=== PATIENT | female | born 1965 | race Caucasian/White ===

== ENCOUNTER 2022-06-12 15:08 | Emergency (ER) | payer OTHER, SELFPAY ==
--- NOTE | ~2022-06-12 | XR_ITS ---
XR wrist RT min 3V DATE: 06/12/2022 15:41 INDICATION: Renal partially. Deformity and tenderness of wrist TECHNIQUE: 3 views of right breast COMPARISON: None FINDINGS: There is a minimally displaced comminuted intra-articular fracture of the distal radius wit h dorsal inclination of the distal radial articular surface. Probable nondisplaced fracture of the ulnar styloid process. Normal alignment at the radiocarpal joint. IMPRESSION: Comminuted intra-articular fracture distal radius with dorsal inclination of distal radia l articular surface Probable virtually nondisplaced ulnar styloid process fracture Reviewed, dictated and finalized at location A. IMPRESSION: Comminuted intra-articular fracture distal radius with dorsal incli nation of distal radial articular surface Probable virtually nondisplaced ulnar styloid process fracture
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
[2022-06-12 15:31] VITALS: BP 158/74; PULSE 86; RESP 18; TEMP 36.7; O2SAT 96
[2022-06-12] MEDS: HYDROcodone/acetaminophen (*CRX) 7.5-325 MG TABLET 1 TAB PO (16:31)
== END 2022-06-12 18:30 | disposition home or self-care (01) ==
PROVIDERS: Emergency Provider Emergency Medicine; PCP Nurse Practitioner Family
DX: S52.571A Other intraarticular fracture of lower end of right radius, initial encounter for closed fracture (principal); V49.40XA Driver injured in collision with unspecified motor vehicles in traffic accident, initial encounter
CPT/HCPCS: 29125; 73090; 73110; 99284; A4565; A9270

== ENCOUNTER 2022-06-16 01:00 | Day surgery (SDC) | payer OTHER, SELFPAY ==
[2022-06-14 14:08] VITALS: BMI 38.7
--- NOTE | 2022-06-14 14:16 | PC.NURSE ---
Report to the Outpatient Waiting Room, entrance under the green pavilion located off [facility], at time 0830 on date 06/16/22. OR Time: 1030. Time changes happen often and if your time is changed the preop area will call you the afternoon before. - You and your visitor will be asked to self-screen and do not enter if you have any COVID symptoms. - Only one visitor and NO children visitors are allowed at this time. - The patient visitor is requested to leave or wait in car when not with patient due to restrictions. - A mask is required within the hospital. Patients may have clear liquids (water, carbonated beverages, clear teas, apple juice) until 3 hours prior to surgery with a maximum of 20 ounces. - No food from midnight until time of surgery Take the following medications with a SIP of water the morning of surgery: PAIN PILL IF NEEDED Medications to discontinue per physician: N/A Date to take last dose: N/A Please no make-up, nail kinyarwanda, hairspray, perfume, deodorant, or body powder the day of surgery. No jewelry (including any body piercings) or valuables the day of surgery, leave them at home. Please take a shower or bath the night before, or the morning of, surgery with an antibacterial soap. Wear comfortable, loose fitting clothing. - Jewelry must be removed prior to entering the operating room. Rings and piercings that are not removed may be cut off. - The hospital will not accept responsibility for valuables. - Please leave all valuables, including medications, at home the day of surgery. If you are going home after surgery, a licensed transport truck driver must drive you home. - NO public transportation without another adult. - We recommend that an adult stay with you for 24 hours following discharge. - We also recommend that you do not drive, make important decision, drink alcoholic beverages, or take any drugs that were not prescribed by your health care provider for at least 24 hours after your discharge time. Follow any additional instructions given to you from your surgeon. If you or anyone in your household have experienced Covid symptoms in the past week, please notify your surgeon or the nurse liaison at the phone number below for possible testing. Telephone instructions given to PT - ISHAAN SHELTON and asked if any additional questions and then verbalized understanding. Patient advised to call surgeon office or pre surgery nurse liaison [phone] if any additional questions.
--- NOTE | 2022-06-15 16:00 | WPDANESEPPF ---
Anes - Initial Pre Proc Eval Procedure: Operation Date: 06/16/22 10:30 Proposed Procedures p Open Reduction Internal Fixation of Right Wrist - Michoacano Metz MD Date/Time: 06/15/22 16:00 Surgeon: Michoacano Metz MD Pre Op Diagnosis: right distal radius fracture Patient Data Age: 56 Gender: F Height: 1.68 m Weight: 108.86 kg Allergies Allergy/AdvReac Type Severity Reaction Status Date / Time No Known Allergies Allergy Verified 06/16/22 09:10 Home Medications Medication Instructions Recorded Confirmed Type hydrocodone 5 mg-acetaminophen 325 1 tablet PO Q8H PRN pain #7 tabs 06/12/22 06/16/22 Rx mg tablet Patient hx anesthesia problems: none Family hx anesthesia problems: none Results Review: All pre-operative results and documents have been reviewed as part of the pre-operative evaluation. [facility] Past Medical History Medical History Arthritis Distal radius fracture, right Obesity PONV (postoperative nausea and vomiting) Smoker Social History Social History (Updated 06/14/22 @ 12:17 by Janice Dsouza MA) Smoking packs per day: 1 Smoking cigarettes per day: 20.0 Years smoked: 30 Smoking pack-years: 30.00 Smoking status: Current every day smoker Tobacco type: cigarettes Alcohol intake: former Substance use: never Substance use type: does not use Living arrangements: with family Gender identity (if verbalized by the patient): Female Spiritual care concerns: No Anes - Eval Final PreProcedure Day of Procedure 06/15/22 16:00 Patient weight: obese Heart: regular rate and rhythm Lungs: clear to auscultation and normal air movement Airway: Mallampati scale class II Neurological: alert and oriented Last oral intake: >/= 8 hours ASA classification: III Emergent: no Anesthetic plan: proceed Anesthesia type and monitoring: general LMA Results Review: All pre-operative results and documents have been reviewed as part of the pre-operative evaluation. Informed Consent: The patient's anesthetic plan and its attendant risks and benefits were discussed with the patient/family/POA. Questions were solicited and answers provided to the satisfaction of the patient/family/POA.
--- NOTE | 2022-06-15 16:02 | WPDANESPNB ---
Anes - Peripheral Nerve Block Date/Time: 06/15/22 16:02 I have discussed with the patient/family/POA the placement of a peripheral nerve block for post-operative pain management, including associated risks, benefits, complications, and side effects. Alternative methods of post-operative analgesia were detailed. Questions were solicited and answers provided to the satisfaction of the patient/family/POA. Time-Out: A pre-procedural Time-Out was completed immediately before starting the procedure and confirmed: Patient Identification, Site, Procedure, Patient Position and the Availability of Requisite Equipment. Clinical Indications: Acute post-operative pain management requested by the operative surgeon. Nerve Block Insertion Note Anes-nerve block: supraclavicular Patient position: supine Skin prep: chlorhexidine Needle: 22 gauge, stimulating, insulated echogenic needle. Needle length: 80 mm Technique: ultrasound (in plane) Injectate: bupivacaine 0.5% with epi 5 mcg/ml (20cc) Observations: tolerated well Complications: none Procedure start time:: 1110 Procedure end time:: 1115
[2022-06-16] VITALS (12 sets, daily range): BP systolic 111–153; BP diastolic 63–79; PULSE 65–76; RESP 12–20; TEMP 36.7–36.8; O2SAT 94–97
--- NOTE | ~2022-06-16 | XR_ITS ---
EXAMINATION: XR surgery orthopedic DATE: 06/16/2022 13:31 INDICATION: Open reduction internal fixation of a right wrist fracture. TECHNIQUE: 4 fluoroscopic images of the right wrist were obtained during procedure performed by Dr. Sandra puga. Radiologist was not present for the imaging or procedure. The amount of fluoroscopy time used during this procedure was 10.3 minutes. COMPARISON: None. FINDINGS: Interval open reduction internal volar plate and screw fixation of the intra-articular frac ture of the distal right radius with decreased now 60 degrees dorsal tilt of the distal articular farhat face. No significant fracture gap or incongruity evident at the intra-articular fracture plane which involves the radial side of the lunate fossa. Essentially indiscernible nondisplaced fracture at the base of the ulnar styloid process is better appreciated on the prior radiographs. Joint spaces are no rmal. Expected soft tissue gas the operative bed. IMPRESSION: 1. Improved alignment of a comminuted intra-articular fracture of the distal right radius post open r eduction internal fixation. 2. Unchanged nondisplaced fracture across the base of the ulnar styloid process. Reviewed, dictated and finalized at location A. IMPRESSION: 1. Improved alignment of a comminuted intra-articular fracture of the distal ri ght radius post open reduction internal fixation. 2. Unchanged nondisplaced fracture across the base of the ulnar styloid process .
--- NOTE | 2022-06-16 07:14 | WPDHPUPDATE1 ---
History and Physical Update Update Date/Time: 06/16/22 07:14 History and Physical has been reviewed, including an updated exam of the patient. There are NO changes in the patient's condition. Risks, benefits, and alternatives have been discussed and questions answered. Patient agrees to proceed with procedure.
[2022-06-16] MEDS: LACTATED RINGERS 1,000 ML 30 ML IV CONT ×2 (08:55→13:51)
[2022-06-16] MEDS: CELECOXIB 200 MG CAPSULE PO (08:55)
[2022-06-16] MEDS: ACETAMINOPHEN 500 MG TABLET PO (08:55)
--- NOTE | 2022-06-16 09:08 | ECG_ITS ---
Measurements Intervals [place] Rate: 60 P: 30 [place]: 160 QRS: -1 QRSD: 97 T: -22 QT: 408 QTc: 408 Interpretive Statements SINUS RHYTHM ST-T WAVE ABNORMALITY IN ANT/INF LEADS- CONSIDER ISCHEMIA ABNORMAL ECG NO PREVIOUS ECG AVAILABLE FOR COMPARISON Electronically Signed On 06-16-2022 11:26:58 CDT by Wiliam Segura D.O.
[2022-06-16] MEDS: ceFAZolin 2 GM/D5W 50 ML 2 GM/50 ML BAG IVPB (11:16)
--- NOTE | 2022-06-16 14:01 | W.PM.PROC2 ---
Procedure Note - Detailed Date of Procedure 06/16/22 Pre-op Diagnosis right distal radius fracture Post-op Diagnosis Same Procedure Performed ORIF RIGHT DISTAL RADIUS FRACTURE Surgeon Michoacano Metz MD Anesthesia General Description of Procedure THE RIGHT UPPER EXTREMITY WAS PREPPED AND DRAPED IN THE STERILE FASHION. A STANDARD HENRYS APPROACH WAS USED TO THE VOLAR WRIST. DISSECTION THROUGH THE SKIN AND SUBCUTANEOUS TISSUE WAS PREFORMED. THE FCR TENDON WAS IDENTIFIED. THE RADIAL ARTERY WAS IDENTIFIED AND RETRACTED. THE THE FLEXOR POLLICIS AND THE COMMON FLEXOR TENDONS WERE IDENTIFIED AND RETRACTED. THE PRONATOR QUADRATUS WAS IDENTIFIED AND INCISED EXPOSING THE FRACTURE. IT WAS HIGHLY COMMINUTED. A TRIAL REDUCTION WAS PREFORMED AND FIXED WITH A K WIRE. NEXT A BIOMET DISTAL RADIUS LOCKING PLATE WAS PLACED BRIDGING THE FRACTURE FRAGMENTS. SCREWS WERE PLACED DISTALLY AND PROXIMALLY. THE DISTAL SCREWS WERE IMAGED AND FOUND TO BE EXTRA ARTICULAR. C ARM IMAGES WERE PREFORMED AND HARDWARE AND FRACTURE FRAGMENTS WERE IN GOOD POSITION. THE TOURNIQUET WAS DEFLATED AND THE BLEEDERS WERE CAUTERIZED. THE FASCIA AND SUB CUTANEOUS LAYERS WERE APPROXIMATED WITH 3-0 VICRYL. THE SKIN WAS APPROXIMATED WITH CRISTINA. STERILE DRESSING AND SPLINT WAS APPLIED. PATIENT WAS EXTUBATED. Estimated Blood Loss -5.0 Complications No immediate complications Condition Stable Disposition PACU
[2022-06-16] MEDS: oxyCODONE HCL (*CRX) 5 MG TAB IR PO (15:36)
== END 2022-06-16 16:40 | disposition home or self-care (01) ==
PROVIDERS: PCP Nurse Practitioner Family; Visit Provider Orthopaedic Surgery
PROC: (CPT 25575; principal; 2022-06-16 10:30)
DX: S52.571A Other intraarticular fracture of lower end of right radius, initial encounter for closed fracture (principal); S52.614A Nondisplaced fracture of right ulna styloid process, initial encounter for closed fracture; G89.18 Other acute postprocedural pain; V49.50XA Passenger injured in collision with unspecified motor vehicles in traffic accident, initial encounter; F17.210 Nicotine dependence, cigarettes, uncomplicated; E66.9 Obesity, unspecified; Z68.37 Body mass index [BMI] 37.0-37.9, adult
CPT/HCPCS: 25608; 64415; 93005; 99199; A4565; A9270; C1713; J0690; J1100; J1170; J2250; J2405; J2704; J3010; J7120

== ENCOUNTER → 2023-08-26 14:29 | Outpatient (CLI) | payer OTHER, SELFPAY ==
--- NOTE | ~2023-08-26 | CT_ITS ---
EXAMINATION:CT lung screening DATE: 08/26/2023 14:50 INDICATION: Tobacco dependence. Smoker who quit this year with 35 pack year history. TECHNIQUE: Computed tomography (CT) of the chest was performed without intravenous contrast. Automate d exposure control and iterative reconstruction technique were employed. The dose-length product (DLP ) was 295.84 mGy-cm. COMPARISON: None. FINDINGS: The lungs demonstrate minimal atelectasis. No pleural effusion. The heart size is normal. T here are coronary artery calcifications. No pericardial effusion. There is diffuse hepatic steatosis. There is mild thoracic spondylosis. IMPRESSION: 1. Lung-RADS category 1: Negative. Continue annual screening with noncontrast low-dose chest CT in 12 months. Reviewed, dictated and finalized at location E. [facility]MINISTRATOR IMPRESSION: 1. Lung-RADS category 1: Negative. Continue annual screening with noncontrast l ow-dose chest CT in 12 months.
== END ==
PROVIDERS: PCP Nurse Practitioner Family; Visit Provider Nurse Practitioner Family
DX: Z12.2 Encounter for screening for malignant neoplasm of respiratory organs (principal); Z87.891 Personal history of nicotine dependence
CPT/HCPCS: 71271

== ENCOUNTER 2024-11-09 15:20 | Outpatient (CLI) | payer OTHER, SELFPAY ==
--- NOTE | ~2024-11-09 | CT_ITS ---
EXAMINATION: CT lung screening DATE: 11/09/2024 15:35 INDICATION: nicotine dependence in remission TECHNIQUE: Computed tomography (CT) of the chest was performed without intravenous contrast. Addition al 3D reconstructions utilizing coronal maximum intensity projection (MIP) were performed. Automated exposure control and iterative reconstruction technique were employed. The dose-length product was 14 7.39 mGy-cm. COMPARISON: 09/05/2023 FINDINGS: Mild linear discoid atelectasis/scarring at the lingula. No suspicious pulmonary nodules, pneumonia, pulmonary edema or pleural effusion. Heart size normal. Atherosclerotic coronary artery calcification . No pericardial effusion. Thoracic aorta is normal in caliber. No pathologically enlarged thoracic l ymphadenopathy. Visualized upper abdomen and bones are unremarkable. IMPRESSION: 1. . Lung-RADS category 1: Negative. Continue annual screening with noncontrast low-dose chest CT in 12 months. Reviewed, dictated and finalized at location A. RECRUITER
== END 2024-11-09 15:21 | disposition home or self-care (01) ==
LOC: MICIMG 15:22
PROVIDERS: PCP Internal Medicine Pulmonary Disease; Visit Provider Internal Medicine Pulmonary Disease
DX: Z12.2 Encounter for screening for malignant neoplasm of respiratory organs (principal); F17.210 Nicotine dependence, cigarettes, uncomplicated
CPT/HCPCS: 71271